=== PATIENT | female | born 1950 | race Caucasian/White ===

== ENCOUNTER 2018-01-31 21:30 | Emergency (ER) | payer BC ==
[2018-01-31 21:42] VITALS: BP 151/65
[2018-01-31] MEDS ORDERED: Acetaminophen TAB* 325 MG PO ONE (21:50)
[2018-01-31] MEDS ORDERED: Acetaminop/Codeine 30 MG TAB* 1 TAB (300 MG/30 MG) PO ONE (22:12)
--- NOTE | 2018-01-31 22:16 | UC ---
Hand/Wrist HPI - HPI Summary HPI Summary: 67 yo female presents with RIGHT wrist injury sustained about 1 hour [employer]. She tells me that she was walking down some steps and went to grab the railing with her right hand, but missed and slipped forward - hitting her wrist against the metal railing. Has mild pain. Significant bruising and swelling. Denies numbness or tingling. - History Of Current Complaint Chief Complaint: UCUpperExtremity Stated Complaint: WRIST INJURY Time Seen by Provider: 01/31/18 21:45 Hx Obtained From: Patient Onset/Duration: Sudden Onset Severity Initially: Mild Severity Currently: Mild Pain Intensity: 4 Pain Scale Used: 0-10 Numeric - Allergies/Home Medications Allergies/Adverse Reactions: Allergies Allergy/AdvReac Type Severity Reaction Status Date / Time Sulfa (Sulfonamide Allergy Rash Verified 01/31/18 21:42 Antibiotics) Home Medications: Home Medications Levothyroxine TAB* [Synthroid 25 MCG TAB*] 01/31/18 [History] Lisinopril TAB* [Prinivil TAB*] 5 mg PO DAILY 01/31/18 [History Confirmed ] Pravastatin Sodium 01/31/18 [History Confirmed 01/31/18] amLODIPine TAB* [Norvasc 5 mg TAB*] 5 mg PO DAILY 01/31/18 [History Confirmed ] metFORMIN* [Glucophage 500 MG TAB *] 750 mg PO BID 01/31/18 [History Confirmed 01/31/18] PMH/Surg Hx/FS Hx/Imm Hx Endocrine History: Diabetes, Hypothyroidism Cardiovascular History: Hypertension - Surgical History Surgical History: Yes Surgery Procedure, Year, and Place: APPENDECTOMY 1970, HYSTERECTOMY 2012, CHOLECYSTECTOMY 2017 - Family History Known Family History: Positive: None - Social History Occupation: Retired Lives: With Family Alcohol Use: Occasionally Substance Use Type: None Smoking Status (MU): Never Smoked Tobacco - Immunization History Most Recent Tetanus Shot: UNKNOWN Review of Systems All Other Systems Reviewed And Are Negative: Yes Constitutional: Positive: Negative Skin: Positive: Negative Respiratory: Positive: Negative Cardiovascular: Positive: Negative Neurovascular: Positive: Negative Musculoskeletal: Positive: Other: - Right wrist pain/swelling/bruising Neurological: Positive: Negative Psychological: Positive: Negative Physical Exam - Summary Physical Exam Summary: GENERAL: NAD. WDWN. No pain distress. SKIN: No rashes, sores, lesions, or open wounds. CHEST: No accessory muscle use. Breathing comfortably and in no distress. CV: Pulses intact radial and ulnar. Cap refill <2seconds MSK: RIGHT wrist: Mild TTP over ulnar styloid. FROM without pain. Strength 5/5 including port surveyor strength. Moderate edema and ecchymosis on dorsal aspect of wrist. No snuffbox tenderness. NEURO: Alert. Sensations intact hand and all fingers. PSYCH: Age appropriate behavior. Triage Information Reviewed: Yes Vital Signs: Initial Vital Signs Temp 97.6 F 01/31/18 21:37 Pulse 70 01/31/18 21:37 Resp 16 01/31/18 21:37 BP 151/65 01/31/18 21:37 Pulse Ox 99 01/31/18 21:37 Vital Signs Reviewed: Yes Hand/Wrist Course/Dx - Course Course Of Treatment: XR: No radiologist reading after 1800, therefore wet read by myself is tiny avulsion fracture at ulnar styloid. Pt was provided with a cockup splint and advised to RICE and f/u with orthopedics. - Differential Dx/Diagnosis Provider Diagnosis: Fracture of right ulnar styloid Discharge - Sign-Out/Discharge Documenting (check all that apply): Patient Departure All imaging exams completed and their final reports reviewed: Yes - Discharge Plan Condition: Stable Disposition: HOME Patient Education Materials: Wrist Fracture in Adults (ED) Referrals: Khanh De La Rosa MD [Primary Care Provider] - Additional Instructions: If you develop a fever, shortness of breath, chest pain, new or worsening symptoms - please call your PCP or go to the ED. Your blood pressure was high at todays visit. Please see your primary provider within 4 weeks for recheck and re-evaluation. 1) Rest, Ice, and elevate your hand as much as possible 2) Please use the wrist splint as much as possible for comfort and added stability to your wrist 3) Please schedule a follow up appointment with Orthopedics at home - Billing Disposition and Condition Condition: STABLE Disposition: Home
--- NOTE | 2018-02-01 20:48 | UC ---
- Progress Note Progress Note: RADIOLOGY READ REVIEWED. INTERPRETATION CONSISTENT WITH WET READ. 1. SOFT TISSUE INJURY. 2. SMALL AVULSION FRACTURE FRAGMENT ARISING FROM THE TIP OF THE ULNAR STYLOID PROCESS. NO CHANGE IN MGMT Course/Dx - Diagnoses Provider Diagnoses: Fracture of right ulnar styloid Discharge - Sign-Out/Discharge Documenting (check all that apply): Post-Discharge Follow Up All imaging exams completed and their final reports reviewed: Yes - Discharge Plan Condition: Stable Disposition: HOME Patient Education Materials: Wrist Fracture in Adults (ED) Referrals: Khanh De La Rosa MD [Primary Care Provider] - Additional Instructions: If you develop a fever, shortness of breath, chest pain, new or worsening symptoms - please call your PCP or go to the ED. Your blood pressure was high at todays visit. Please see your primary provider within 4 weeks for recheck and re-evaluation. 1) Rest, Ice, and elevate your hand as much as possible 2) Please use the wrist splint as much as possible for comfort and added stability to your wrist 3) Please schedule a follow up appointment with Orthopedics at home - Billing Disposition and Condition Condition: STABLE Disposition: Home
== END 2018-01-31 22:31 | disposition home or self-care (01) ==
LOC: UCEAST 21:30
DX: S52.614A Nondisplaced fracture of right ulna styloid process, initial encounter for closed fracture (principal); X58.XXXA Exposure to other specified factors, initial encounter; Y92.9 Unspecified place or not applicable; Z88.2 Allergy status to sulfonamides
CPT/HCPCS: 99203; A9270-GY; G0463